=== PATIENT | female | born 2000 | race Caucasian/White ===

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

== ENCOUNTER → 2019-03-03 | Outpatient (CLI) | payer BC | END | disposition home or self-care (01) | LOC: US 07:30 | DX: R10.31 Right lower quadrant pain (principal) ==

== ENCOUNTER → 2019-03-17 | Outpatient (CLI) | payer BC | END | disposition home or self-care (01) | LOC: NM 07:00 | DX: R10.11 Right upper quadrant pain (principal); R10.13 Epigastric pain; R11.0 Nausea ==

== ENCOUNTER → 2020-07-19 | Outpatient (CLI) | payer BC ==
[~2020-07-19] MED LIST changes: +BUDEPRION XL150 MG PO; +CARAFATE1 G1 PO; +CETIRIZINE HYDR10 MG PO; +FAMOTIDINE40 MG PO; +OMEPRAZOLE40 MG PO; +TOPIRAMATE25 M3 PO; +VITAMIN D3125 MCG PO
== END | disposition home or self-care (01) ==
LOC: NM 05:46
PROVIDERS: ATTEND Surgery
DX: K31.84 Gastroparesis (principal); R11.14 Bilious vomiting; R10.13 Epigastric pain; Z20.828 Contact with and (suspected) exposure to other viral communicable diseases

== ENCOUNTER → 2020-07-24 | Day surgery (SDC) | payer BC ==
[~2020-07-24] VITALS: Ht 165.1 cm; Wt 99.8 kg
[2020-07-24 08:24] VITALS: BP 107/52
[2020-07-24 09:34] VITALS: BP 112/72
[2020-07-24 09:49] VITALS: BP 130/82
[2020-07-24 10:07] VITALS: BP 132/90
== END | disposition home or self-care (01) ==
LOC: SDC 07-20 08:00
DX: K59.00 Constipation, unspecified (principal); K29.50 Unspecified chronic gastritis without bleeding; K21.9 Gastro-esophageal reflux disease without esophagitis; F41.9 Anxiety disorder, unspecified; F32.9 Major depressive disorder, single episode, unspecified; R19.7 Diarrhea, unspecified; R11.14 Bilious vomiting; Z79.899 Other long term (current) drug therapy; Z98.890 Other specified postprocedural states

== ENCOUNTER 2022-09-03 15:11 | Emergency (ER) | payer BC ==
[~2022-09-03] VITALS: Ht 165.1 cm; Wt 90.7 kg
[2022-09-03] MEDS ORDERED: SEPTDS PO (16:52)
== END 2022-09-03 17:10 | disposition home or self-care (01) ==
LOC: ED 15:11
DX: L02.416 Cutaneous abscess of left lower limb (principal); Z79.899 Other long term (current) drug therapy

== ENCOUNTER → 2023-10-08 | Outpatient (CLI) | payer BC ==
[~2023-10-08] MED LIST changes: +SEPTDS PO
[2023-10-08 18:19] LABS: BASO % 0.4 % (0.0-1.0); EOS # 0.1 10*3/uL (0.0-0.4); HEMATOCRIT 42.6 % (37.0-47.0); LYMPH # 2.2 10*3/uL (1.3-4.4); LYMPH % 28.3 % (27.0-41.0); MEAN CELL VOLUME 92.6 fl (81.0-99.0); MEAN CORPUSCULAR HGB 32.2 pg (27.0-31.0); MEAN CORPUSCULAR HGB CONC 34.7 g/dl (33.0-37.0); MEAN PLATELET VOLUME 11.9 fl (9.6-12.3); MONO # 0.6 10*3/uL (0.1-1.0); MONO % 7.1 % (3.0-9.0); NEUT # 4.8 10*3/uL (2.3-7.9); NEUT % 62.8 % (47.0-73.0); PLATELET COUNT AUTOMATED 159 10*3/uL (130-400); RED CELL DISTRI WIDTH 12.1 % (0-14.5); WHITE BLOOD COUNT 7.7 10*3/uL (4.8-10.8)
[2023-10-08 18:45] LABS: ALKALINE PHOSPHATASE 59 U/L (46-116); BUN 8 mg/dl (9-23); CHLORIDE 112 mmol/L (98-107); SGPT/ALT 16 U/L (5-49); TOTAL PROTEIN 7.6 gm/dL (6.0-8.0)
[2023-10-08 20:55] LABS: VITAMIN D, 25-HYDROXY 44.1 ng/mL (30-100)
== END | disposition home or self-care (01) ==
LOC: LAB 18:03
PROVIDERS: ATTEND Nurse Practitioner Family
DX: G43.109 Migraine with aura, not intractable, without status migrainosus (principal); E55.9 Vitamin D deficiency, unspecified; L65.9 Nonscarring hair loss, unspecified; E61.1 Iron deficiency; J30.9 Allergic rhinitis, unspecified; K21.9 Gastro-esophageal reflux disease without esophagitis; F41.9 Anxiety disorder, unspecified; R11.0 Nausea; F32.9 Major depressive disorder, single episode, unspecified; R10.11 Right upper quadrant pain; R53.83 Other fatigue; R53.82 Chronic fatigue, unspecified

== ENCOUNTER → 2023-12-22 | Day surgery (SDC) | payer BC ==
[2023-12-22] VITALS (7 sets, daily range): BP systolic 89–148; BP diastolic 62–118
[~2023-12-22] VITALS: Ht 162.5 cm; Wt 93.9 kg
== END | disposition home or self-care (01) ==
LOC: SDC 12-18 12:30
PROVIDERS: ATTEND Obstetrics & Gynecology
DX: Z30.2 Encounter for sterilization (principal); F41.9 Anxiety disorder, unspecified; F32.A Depression, unspecified; K21.9 Gastro-esophageal reflux disease without esophagitis; G43.909 Migraine, unspecified, not intractable, without status migrainosus; Z88.1 Allergy status to other antibiotic agents; Z90.89 Acquired absence of other organs; Z79.899 Other long term (current) drug therapy

== ENCOUNTER → 2024-03-30 | Outpatient (CLI) | payer BC | END | disposition home or self-care (01) | LOC: US 14:47 | PROVIDERS: ATTEND Nurse Practitioner Women's Health | DX: N83.291 Other ovarian cyst, right side (principal); N94.6 Dysmenorrhea, unspecified ==

== ENCOUNTER → 2025-08-29 | Outpatient (CLI) | payer OTHER ==
[2025-08-29 18:22] LABS: BASO # 0.1 10*3/uL (0.0-0.1); BASO % 0.6 % (0.0-1.0); EOS # 0.1 10*3/uL (0.0-0.4); EOS % 0.8 % (1.0-4.0); MEAN CELL VOLUME 91.1 fl (81.0-99.0); MEAN CORPUSCULAR HGB 29.6 pg (27.0-31.0); MEAN PLATELET VOLUME 13.0 fl (9.6-12.3); MONO # 0.7 10*3/uL (0.1-1.0); MONO % 7.3 % (3.0-9.0); NEUT # 5.5 10*3/uL (2.3-7.9); NEUT % 61.1 % (47.0-73.0); NUCLEATED RED BLOOD CELL 0.0 % (0.0-0.0); NUCLEATED RED BLOOD CELL 0.0 10*3/uL (0.0-0.0); PLATELET COUNT AUTOMATED 164 10*3/uL (130-400); RED CELL DISTRI WIDTH 12.9 % (0-14.5)
[2025-08-29 18:47] LABS: BUN 13 mg/dl (9-23); LDL CHOLESTEROL 107 mg/dL (9-159); SGPT/ALT 34 U/L (5-49)
[2025-08-29 18:48] LABS: VITAMIN D, 25-HYDROXY 36.6 ng/mL (30-100)
== END | disposition home or self-care (01) ==
LOC: RHCWE 15:10
PROVIDERS: ATTEND Nurse Practitioner Family
DX: K21.9 Gastro-esophageal reflux disease without esophagitis (principal); D50.8 Other iron deficiency anemias; E55.9 Vitamin D deficiency, unspecified; F41.9 Anxiety disorder, unspecified; E78.00 Pure hypercholesterolemia, unspecified; J30.9 Allergic rhinitis, unspecified; Z76.89 Persons encountering health services in other specified circumstances